=== PATIENT | female | born 1960 | race Caucasian/White ===

== ENCOUNTER 2024-04-20 14:14 | Outpatient (AMB) | payer OTHER, SELFPAY ==
--- NOTE | 2024-04-20 14:19 | PD.ORTHCLVIS ---
Vital signs 04/20/24 14:20 Height 1.52 m Height Method Stated Weight 99.989 kg Weight Measurement Method Standing Scale BMI 43.2 BP 135/82 H Blood Pressure Source Automatic Cuff Blood Pressure Location Left Upper Arm Position Sitting Respiration 19 Pulse 84 Pulse Source Monitor Temp 96.4 F L Temp Source Temporal Artery Scan Pulse Oximetry (%) 95 Oxygen Delivery Method Room Air Med/Allergies Allergies & Medications Allergies aspirin Allergy (Verified 04/20/24 14:26) codeine Allergy (Verified 04/20/24 14:26) WALNUTS Allergy (Uncoded 04/20/24 14:26) Medication Reconciliation levothyroxine 137 mcg capsule 137 mcg PO QDAY 01/31/23 [History Confirmed 04/20/24] metformin 500 mg tablet 500 mg PO BID 01/31/23 [History Confirmed 04/20/24] Exam Exam Patient is in no acute distress and is cooperative with the examination today. Breathing is nonlabored. Patient has a normal mood and affect. Bilateral extremities were evaluated and demonstrates sensation intact to light touch. Palpable pedal pulses are present. No significant edema is present. Bilateral hips were examined. The patient has no pain with log roll of the hips. Internal rotation to 30 degrees and external rotation to 30 degrees is painless. Negative FADIR. Right knee was examined today. The right knee is in reasonable alignment. Range of motion from 0-120 degrees. Knee is stable to varus and valgus as well as AP translation with <5mm. Patient has a negative McMurrays. There is no pain with patellofemoral compression and no crepitus noted. The knee is nontender to palpation. Left knee was examined today. The left knee is in varus alignment. Range of motion from 0-115 degrees. Knee is stable to varus and valgus as well as AP translation with <5mm. Patient has a negative McMurrays. There is no pain with patellofemoral compression and no crepitus noted. The knee is tender to palpation medially. X-rays from [facility] that are nonweightbearing demonstrate osteophytes and joint space narrowing medially Assessment and Plan Problem List (1) Pain in left knee: Status: Acute Plan: Patient is a 62-year-old female with left knee osteoarthritis of significant severity. IShe has significant arthritis on standing film. She would like a cortisone injection today. I discussed with her that this is reasonable. We also would like to get new x-rays of her right Recommend knee cortisone injection as patient would like to proceed with conservative treatment at this time. The risks and benefits of the procedure were reviewed with the patient and patient gave verbal consent to continue with the procedure. Procedure: performed by Dr. Gauthier Using sterile technique the left knee was thoroughly prepped with alcohol, and approximately 1 cc of Kenalog 40 mg/mL and 4 cc of 1% lidocaine was injected without resistance into the medial tibial femoral joint space. The patient tolerated the procedure. (2) Bilateral primary osteoarthritis of knee: Status: Acute Advanced Care Planning Discussion Advance care planning discussed with:: patient Office Procedures GNS Level of Care Nursing/Assessment Patient Status: Established Patient Nursing Assessment/Reassesment: Medication Reconciliation, Update PMH in EMR and Vital Signs Coordination of Care: Complex Care and Chronic Disease 1-5, Education Complex Pt/Fam, Consent,records obtained, informed consent, Results/Orders obtained and Staff clarify orders Established Patient Charge Established Patient Point Assignment: 95 Established Patient Point Charge: EP Level 3 (80-115) Surgical Proc/IM SQ injection Major Surgical Procedure: Yes (LEFT KNEE INJECTION) Medication Given Medication Given Medication Given: Yes Documented Dose Given: 4 Route: Infiitration Medication Given Medication Given Medication Given: Yes Documented Dose Given: 1 Route: Infiitration Office Meds Xylocaine 10 mg/mL (1 %) injection solution Performing Provider: Domenico Gauthier MD Performing Location: [facility] Administered by: Domenico Gauthier MD on 04/20/24 14:29 Dose Route Admin Location Dispensed Lot Number Expiration Date [facility] Breakfast Bar Attendant 20 mL Infiltration 20 mL [id number] 08/17/27 33137-401-10 [facility] triamcinolone acetonide 40 mg/mL suspension for injection Performing Provider: Domenico Gauthier MD Performing Location: [facility] Administered by: Domenico Gauthier MD on 04/20/24 14:29 Dose Route Admin Location Dispensed Lot Number Expiration Date [facility] Breakfast Bar Attendant 40 mg intra-articular KNEE 1 mL [id number] 07/16/25 6224-4309-95 TEVA PARENTERAL [place] Intake Visit Data Collection New Patient or Established: Established Patient (seen at [facility] within 3 years) Reason for Visit:: LEFT KNEE INJECTION Seen by Clinical Staff ONLY (RN/MA): No Supervisor Pre Wave Required: No PCP or OBGYN visit in last 3 months: Yes Hx Now: No Do You Feel Safe at Home: Yes Authorities Contacted: N/A Questionairres Past Medical History Past Medical History Have you ever been diagnosed with any of the following: Respiratory Problems Smoking: No Smoking Exposure: No Subjective Visit Visit for: follow up visit, knee (LEFT) and injections Immunization / Flu Flu Vaccine in the Last 12 Months: No Flu Vaccine Exclusion Criteria: No Exclusion Criteria History of Present Illness Chief complaint: Bilateral knee pain Syed is a pleasant 63-year-old female with bilateral knee pain worse on the left. She has significant left knee pain. She is done well with previous cortisone injections would like 1 today. She reports the right knee is now hurting. We have not x-rayed her right knee before. Pain Pain level (0-10): 10 Pain duration: ALL DAY Pain location: inside (medial) and anterior Pain quality: sharp, dull and aching Pain timing: increases with activity Ambulatory data Ambulatory device: none Treatments Improvement with previous injections: Yes Improvement with PT: No Improvement with NSAIDS: no Review of Systems Review of Systems: All systems negative unless otherwise noted in HPI.
[2024-04-20 14:20] VITALS: BP 135/82; PULSE 84; RESP 19; TEMP 35.8; O2SAT 95; BMI 43.2
--- NOTE | 2024-04-20 14:24 | XR_ITS ---
Examination: Bilateral knees 2 views Right lateral knee left lateral knee 2 views Right axial knee left axial knee 2 views TECHNIQUE: Bilateral AP knees standing single view, bilateral PA knees standing single view 30 degrees flexion Standing right lateral knee left lateral knee 2 views Right axial left axial knee 2 views total 6 views Exam date and time: 2024 1432 hours INDICATIONS: Left knee pain 2 years right knee pain 8 months. FINDINGS: Prominent osteopenia Advanced narrowing medial joint spaces bilaterally Moderate to advanced osteoarthritis patellofemoral joints bilaterally No patellar dislocation No fractures IMPRESSION: Advanced narrowing medial joint spaces bilaterally Moderate to advanced osteoarthritis patellofemoral joints bilaterally
== END 2024-04-20 14:34 | disposition home or self-care (01) ==
LOC: HODSRG 14:14
PROVIDERS: PCP Family Medicine; Referring Provider Family Medicine; Supervising Provider Orthopaedic Surgery Adult Reconstructive Orthopaedic Surgery; Visit Provider Orthopaedic Surgery Adult Reconstructive Orthopaedic Surgery
DX: M25.562 Pain in left knee (principal); M17.0 Bilateral primary osteoarthritis of knee
CPT/HCPCS: 20610; 73564; 99213; J3301; J3490; G0463

== ENCOUNTER → 2024-05-10 | Outpatient (CLI) | payer OTHER, SELFPAY ==
[2024-05-10 11:22] LABS: Basophils # (Auto) 0.1 Thou/mm3 (0.0-0.2); Basophils % (Auto) 1 % (0-2.5); Eosinophils # (Auto) 0.2 Thou/mm3 (0.0-0.5); Eosinophils % (Auto) 3 % (0-10); Hemoglobin 14.5 g/dL (12.0-16.0); Immature Granulocytes % (Auto) 0 % (0-0); Immature Granulocytes Auto 0.01 Thou/mm3 (0.00-0.00); Lymphocytes # (Auto) 2.2 Thou/mm3 (1.0-4.8); Lymphocytes % (Auto) 30 % (10-50); Mean Corpuscular HGB Conc 33.7 g/dl (31.0-37.0); Mean Corpuscular Hemoglobin 30.7 pg (25.0-35.0); Mean Corpuscular Volume 91 fL (80-100); Monocytes # (Auto) 0.6 Thou/mm3 (0.0-0.8); Monocytes % (Auto) 8 % (0-12); Neutrophils # (Auto) 4.5 Thou/mm3 (1.8-7.7); Neutrophils % (Auto) 59 % (37-80); Nucleated Red Blood Cell % 0 /100 WBC (0); Platelet Count 248 Thou/mm3 (140-440); RDW Standard Deviation 43.2 fL (36.4-46.3); Red Blood Count 4.73 Miln/mm3 (4.00-5.20); White Blood Count 7.6 Thou/mm3 (3.6-11.0)
[2024-05-10 11:40] LABS: Collection Type, Urine Clean Catch
[2024-05-10 11:47] LABS: Alanine Aminotransferase 22 U/L (10-49); Albumin, Serum 4.4 gm/dL (3.4-4.8); Albumin/Globulin Ratio 1.9 (1.2-2.2); Alkaline Phosphatase 74 U/L (46-116); Anion Gap 9 (7-16); Aspartate Amino Transferase 14 U/L (0-34); BUN/Creatinine Ratio 19 Ratio (12-20); Bilirubin,Total 0.3 mg/dL (0.3-1.2); Blood Urea Nitrogen 15 mg/dL (9-23); Calcium 9.6 mg/dL (8.3-10.6); Calcium (Corrected) 9.6 mg/dL (8.5-10.1); Cardiac Risk Estimate 3.6 RATIO (3.7-5.6); Chloride 105 mMol/L (98-107); Cholesterol 242 mg/dL (132-200); Creatinine (Component) 0.8 mg/dL (0.6-1.3); Globulin 2.3 gm/dL (2.3-3.5); Glucose 151 mg/dL (74-106); HDL Cholesterol 67 mg/dL (40-60); LDL Cholesterol,Calculated 131 mg/dL (0-130); Osmolality,Calculated 286 (275-295); Potassium 4.4 mMol/L (3.4-5.1); Sodium 142 mMol/L (136-145); Thyroid Stimulating Hormone 1.65 uIU/mL (0.55-4.78); Total Protein 6.7 gm/dL (5.7-8.2); Triglycerides 219 mg/dL (30-150); eGFR > 60 See Note
[2024-05-10 11:49] LABS: T4 (Thyroxine) 12.4 mcg/dL (4.5-10.9)
[2024-05-10 11:50] LABS: Vitamin B12 401 pg/mL (211-911); Vitamin D 25 Hydroxy Total 36.3 ng/mL (7.3-40.2)
[2024-05-10 11:52] LABS: Glucose Estimated Average 154 mg/dL (80-131)
[2024-05-10 12:17] LABS: Bilirubin,Urine Negative (Negative); Blood,Urine Negative (Negative); Clarity,Urine Clear (Clear/Hazy); Color,Urine Lt-Yellow (Lt Yel-Yel); Culture Indicated,Urine Not Indicated; Glucose, Urine Negative (Negative); Ketones,Urine Negative (Negative); Leukocyte Esterase,Urine Positive (Negative); Nitrite,Urine Negative (Negative); PH,Urine 5.5 (5.0-7.0); Protein,Urine Negative (Neg - Trace); RBC,Urine 1 /hpf (0-3); Specific Gravity,Urine 1.023 (1.001-1.035); Squamous Epithelial Cell,Urine 1 /hpf (0-5); Urobilinogen,Urine Negative mg/dL (0.0-1.0); WBC,Urine 2 /hpf (0-5)
[2024-05-10 12:17] LABS: Creatinine MALB Rnd Ur 129 mg/dL (30-125); Microalbumin, Random Urine < 3 mg/L (0-300)
== END | disposition home or self-care (01) ==
PROVIDERS: PCP Family Medicine; Referring Provider Registered Nurse; Visit Provider Registered Nurse
DX: E03.9 Hypothyroidism, unspecified (principal); E11.65 Type 2 diabetes mellitus with hyperglycemia; E78.2 Mixed hyperlipidemia
CPT/HCPCS: 36415; 80053; 80061; 81001; 82043; 82306; 82570; 82607; 83036; 84436; 84443; 85025

== ENCOUNTER 2024-05-11 14:19 | Outpatient (AMB) | payer OTHER, SELFPAY ==
[2024-05-11 14:36] VITALS: BP 144/71; PULSE 76; RESP 17; TEMP 36.3; O2SAT 98; BMI 43.2
--- NOTE | 2024-05-11 14:36 | ORTHONT_ITS ---
Vital signs 05/11/24 14:36 Height 1.52 m Height Method Stated Weight 99.96 kg Weight Measurement Method Standing Scale BMI 43.2 BP 144/71 H Blood Pressure Source Automatic Cuff Blood Pressure Location Right Upper Arm Position Sitting Respiration 17 Pulse 76 Pulse Source Monitor Temp 97.3 F Temp Source Temporal Artery Scan Pulse Oximetry (%) 98 Oxygen Delivery Method Room Air Med/Allergies Allergies & Medications Allergies aspirin Allergy (Verified 05/11/24 14:38) codeine Allergy (Verified 05/11/24 14:38) WALNUTS Allergy (Uncoded 05/11/24 14:38) Medication Reconciliation levothyroxine 137 mcg capsule 137 mcg PO QDAY 01/31/23 [History Confirmed 05/11/24] metformin 500 mg tablet 500 mg PO BID 01/31/23 [History Confirmed 05/11/24] Exam Exam Patient is in no acute distress and is cooperative with the examination today. Breathing is nonlabored. Patient has a normal mood and affect. Bilateral extremities were evaluated and demonstrates sensation intact to light touch. Palpable pedal pulses are present. No significant edema is present. Bilateral hips were examined. The patient has no pain with log roll of the hips. Internal rotation to 30 degrees and external rotation to 30 degrees is painless. Negative FADIR. Right knee was examined today. The right knee is in reasonable alignment. Range of motion from 0-120 degrees. Knee is stable to varus and valgus as well as AP translation with <5mm. Patient has a negative McMurrays. There is no pain with patellofemoral compression and no crepitus noted. The knee is nontender to palpation. Left knee was examined today. The left knee is in varus alignment. Range of motion from 0-115 degrees. Knee is stable to varus and valgus as well as AP translation with <5mm. Patient has a negative McMurrays. There is no pain with patellofemoral compression and no crepitus noted. The knee is tender to palpation medially. X-rays from [facility] that are nonweightbearing demonstrate osteophytes and joint space narrowing medially Assessment and Plan Problem List (1) Pain in left knee: Status: Acute Plan: Patient is a 62-year-old female with left knee osteoarthritis of significant severity. She has significant arthritis on the standing film. We discussed that she has severe arthritis of the right knee as well. We will continue with conservative management for now. (2) Bilateral primary osteoarthritis of knee: Status: Acute Advanced Care Planning Discussion Advance care planning discussed with:: patient Office Procedures GNS Level of Care Nursing/Assessment Patient Status: Established Patient Nursing Assessment/Reassesment: Medication Reconciliation, Update PMH in EMR and Vital Signs Coordination of Care: Complex Care and Chronic Disease 1-5, Education Complex Pt/Fam, Consent,records obtained, informed consent, Results/Orders obtained and Staff clarify orders Established Patient Charge Established Patient Point Assignment: 95 Established Patient Point Charge: EP Level 3 (80-115) MA Intake Visit Data Collection New Patient or Established: Established Patient (seen at [facility] within 3 years) Reason for Visit:: BILAT KNEE XRAY RESULT Seen by Clinical Staff ONLY (RN/MA): No Air Traffic Systems Technician Required: No PCP or OBGYN visit in last 3 months: Yes Hx Now: No Do You Feel Safe at Home: Yes Authorities Contacted: N/A Questionairres Past Medical History Past Medical History Have you ever been diagnosed with any of the following: Respiratory Problems Smoking: No Smoking Cessation Counseling: No Smoking Exposure: No Subjective Visit Visit for: follow up visit and knee Immunization / Flu Flu Vaccine in the Last 12 Months: No Flu Vaccine Exclusion Criteria: No Exclusion Criteria History of Present Illness Chief complaint: BILAT KNEE XRAY RESULT Date of injury / onset of symptoms: 2 YEARS Syed is a pleasant 63-year-old female with bilateral knee pain worse on the left. She has significant left knee pain. She is done well with previous cortisone injections would like 1 today. She reports the right knee is now hurting. She is here for x-ray results of the right knee Pain Pain level (0-10): 8 Pain duration: 2 YEARS Pain location: inside (medial) and outside (lateral) Pain quality: sharp Pain timing: increases with activity Associated signs & symptoms: none Ambulatory data Ambulatory device: none Treatments Improvement with previous injections: No Improvement with PT: No Improvement with NSAIDS: no Review of Systems Review of Systems: All systems negative unless otherwise noted in HPI.
== END 2024-05-11 14:54 | disposition home or self-care (01) ==
LOC: HODSRG 14:19
PROVIDERS: PCP Family Medicine; Referring Provider Family Medicine; Supervising Provider Orthopaedic Surgery Adult Reconstructive Orthopaedic Surgery; Visit Provider Orthopaedic Surgery Adult Reconstructive Orthopaedic Surgery
DX: M25.562 Pain in left knee (principal); M17.0 Bilateral primary osteoarthritis of knee
CPT/HCPCS: 99213; G0463

== ENCOUNTER 2024-08-10 14:25 | Outpatient (AMB) | payer OTHER, SELFPAY ==
[2024-08-10 14:37] VITALS: BP 126/80; PULSE 84; RESP 17; TEMP 36.6; O2SAT 92; BMI 43.7
--- NOTE | 2024-08-10 14:37 | PD.ORTHCLVIS ---
Vital signs 08/10/24 14:37 Height 1.52 m Height Method Stated Weight 100.868 kg Weight Measurement Method Standing Scale BMI 43.7 BP 126/80 Blood Pressure Source Automatic Cuff Blood Pressure Location Left Upper Arm Position Sitting Respiration 17 Pulse 84 Pulse Source Monitor Temp 97.8 F Temp Source Temporal Artery Scan Pulse Oximetry (%) 92 L Oxygen Delivery Method Room Air Med/Allergies Allergies & Medications Allergies aspirin Allergy (Verified 08/10/24 14:39) codeine Allergy (Verified 08/10/24 14:39) WALNUTS Allergy (Uncoded 08/10/24 14:39) Medication Reconciliation levothyroxine 137 mcg capsule 137 mcg PO QDAY 01/31/23 [History Confirmed 08/10/24] metformin 500 mg tablet 500 mg PO BID 01/31/23 [History Confirmed 08/10/24] Exam Exam Patient is in no acute distress and is cooperative with the examination today. Breathing is nonlabored. Patient has a normal mood and affect. Bilateral extremities were evaluated and demonstrates sensation intact to light touch. Palpable pedal pulses are present. No significant edema is present. Bilateral hips were examined. The patient has no pain with log roll of the hips. Internal rotation to 30 degrees and external rotation to 30 degrees is painless. Negative FADIR. Right knee was examined today. The right knee is in reasonable alignment. Range of motion from 0-120 degrees. Knee is stable to varus and valgus as well as AP translation with <5mm. Patient has a negative McMurrays. There is no pain with patellofemoral compression and no crepitus noted. The knee is nontender to palpation. Left knee was examined today. The left knee is in varus alignment. Range of motion from 0-115 degrees. Knee is stable to varus and valgus as well as AP translation with <5mm. Patient has a negative McMurrays. There is no pain with patellofemoral compression and no crepitus noted. The knee is tender to palpation medially. X-rays from [facility] that are nonweightbearing demonstrate osteophytes and joint space narrowing medially Assessment and Plan Problem List (1) Pain in left knee: Status: Acute Plan: Patient is a 62-year-old female with left knee osteoarthritis of significant severity. She has significant arthritis on the standing film. We discussed that she has severe arthritis of the right knee as well. Recommend knee cortisone injections as patient would like to proceed with conservative treatment at this time. The risks and benefits of the procedure were reviewed with the patient and patient gave verbal consent to continue with the procedure. Procedure: performed by Dr. Gauthier Using sterile technique the Bilateral knees were thoroughly prepped with alcohol, and approximately 1 cc of Kenalog 40 mg/mL and 4 cc of 1% lidocaine was injected into each knee without resistance into the medial tibial femoral joint space. The patient tolerated the procedure. (2) Bilateral primary osteoarthritis of knee: Status: Acute Advanced Care Planning Discussion Advance care planning discussed with:: patient Office Procedures GNS Level of Care Nursing/Assessment Patient Status: Established Patient Nursing Assessment/Reassesment: Medication Reconciliation, Update PMH in EMR and Vital Signs Coordination of Care: Complex Care and Chronic Disease 1-5, Education Complex Pt/Fam, Consent,records obtained, informed consent, Results/Orders obtained and Staff clarify orders Established Patient Charge Established Patient Point Assignment: 95 Established Patient Point Charge: EP Level 3 (80-115) Surgical Proc/IM SQ injection Major Surgical Procedure: Yes (BILATERAL KNEE INJECTION) Medication Given Medication Given Medication Given: Yes Documented Dose Given: 8 Route: Infiitration Medication Given Medication Given Medication Given: Yes Documented Dose Given: 1 Route: Infiitration Office Meds Xylocaine 10 mg/mL (1 %) injection solution Performing Provider: Domenico Gauthier MD Performing Location: [facility] Administered by: Domenico Gauthier MD on 08/10/24 14:43 Dose Route Admin Location Dispensed Lot Number Expiration Date [facility] Telegraphic Typewriter Installer 40 mL Infiltration 40 mL [id number] 06/17/27 25349-534-33 [facility] triamcinolone acetonide 40 mg/mL suspension for injection Performing Provider: Domenico Gauthier MD Performing Location: [facility] Administered by: Venkat Solitario [id number], RHA on 08/10/24 14:43 Dose Route Admin Location Dispensed Lot Number Expiration Date [facility] Telegraphic Typewriter Installer 80 mg intra-articular 2 mL [id number] 09/15/25 41923-225-27 DARRYN ONEAL MA Intake Visit Data Collection New Patient or Established: Established Patient (seen at [facility] within 3 years) Reason for Visit:: BILATERAL KNEE INJECTIONS- KNEE PAIN Seen by Clinical Staff ONLY (RN/MA): No Assistant Professor Of Anthropology Required: No PCP or OBGYN visit in last 3 months: Yes Hx Now: No Do You Feel Safe at Home: Yes Authorities Contacted: N/A Questionairres Past Medical History Past Medical History Have you ever been diagnosed with any of the following: Respiratory Problems Smoking: No Smoking Cessation Counseling: No Smoking Exposure: No Subjective Visit Visit for: knee (BILATERAL KNEE PAIN ) Immunization / Flu Flu Vaccine in the Last 12 Months: No Flu Vaccine Exclusion Criteria: Refused by Patient and No Exclusion Criteria History of Present Illness Chief complaint: BILAT KNEE XRAY RESULT Date of injury / onset of symptoms: 2 YEARS Syed is a pleasant 63-year-old female with bilateral knee pain worse on the left. She has significant left knee pain. She is done well with previous cortisone injections would like 1 today. She reports the right knee is now hurting. She will continue with bilateral knee injections today Personal History Red flag PMH: none Pain Pain level (0-10): 10 Pain duration: 3 DAYS Pain location: inside (medial), outside (lateral) and anterior Pain quality: sharp Pain timing: night and increases with activity Associated signs & symptoms: stiffness and none Ambulatory data Ambulatory device: none Walking distance (minutes): 1 Treatments Number of previous injections: 2 Improvement with previous injections: Yes Number of Physical Therapy sessions: 0 Improvement with PT: No Improvement with NSAIDS: n/a Review of Systems Review of Systems: All systems negative unless otherwise noted in HPI.
== END 2024-08-10 14:52 | disposition home or self-care (01) ==
PROVIDERS: PCP Family Medicine; Referring Provider Family Medicine; Supervising Provider Orthopaedic Surgery Adult Reconstructive Orthopaedic Surgery; Visit Provider Orthopaedic Surgery Adult Reconstructive Orthopaedic Surgery
DX: M17.0 Bilateral primary osteoarthritis of knee (principal); M25.562 Pain in left knee
CPT/HCPCS: 20610; 99213; J3301; J3490; G0463

== ENCOUNTER → 2024-11-11 | Outpatient (CLI) | payer OTHER, SELFPAY ==
[2024-11-11 17:02] LABS: Free T3 2.6 pg/mL (2.3-4.2); Free T4 (Free Thyroxine) 1.69 ng/dL (0.89-1.76); Thyroid Stimulating Hormone 0.84 uIU/mL (0.55-4.78)
[2024-11-11 17:03] LABS: T4 (Thyroxine) 13.1 mcg/dL (4.5-10.9)
[2024-11-22 07:19] LABS: T3, Reverse, LC/MS/MS* 29 ng/dL (8-25)
== END | disposition home or self-care (01) ==
LOC: COPL 14:48
PROVIDERS: PCP Registered Nurse; Referring Provider Registered Nurse; Visit Provider Registered Nurse
DX: E03.9 Hypothyroidism, unspecified (principal)
CPT/HCPCS: 36415; 84436; 84439; 84443; 84481; 84482